=== PATIENT | female | born 1975 | race Caucasian/White ===

== ENCOUNTER 2019-08-02 16:54 | Emergency (ER) | payer BC, SELFPAY ==
[2019-08-02 16:55] VITALS: BP 155/90; PULSE 95; RESP 18; TEMP 36.1; O2SAT 97; BMI 28.3
[2019-08-02] MEDS: Lidocaine/Epi/Tetracaine 50 ML 1 APPLIC TOPICAL (18:07)
--- NOTE | 2019-08-02 19:00 | ED.VIS.GEN ---
History of Present Illness Chief Complaint: Laceration Informant: Patient Onset: Today Context: Sudden Onset Current Severity: Moderate Maximum Severity: Moderate Narrative: The patient presents to the emergency department with a 4 cm forehead laceration. Patient states she got a new dog. She states that they [place] boxer mix. The dog jumped and scratched her across the face. She suffered a laceration was bleeding. Her tetanus is up-to-date. She denies other injury. The patient is otherwise been in her normal state of health. Prior similar symptoms: No Recent Illness/Hospitalization: No Past Medical History - Allergies and Home Meds Allergies/Adverse Reactions: Allergies No Known Allergies Allergy (Verified 09/02/17 20:40) Primary Care Physician: Mady Palmer MD [Primary Care Provider] - 5-7 Days Prior records reviewed: Yes Past Medical History: None Surgical History: no surgical history Smoking Status: Current every day smoker Review of Systems General: Denies: Chills, Fever, Sweats Eyes: Denies: Visual changes - bilaterally, Diplopia ENT: Denies: Rhinorrhea, Sore throat Cardiovascular: Denies: Chest pain, Palpitations Respiratory: Denies: Dyspnea, Cough, Dyspnea on exertion Gastrointestinal: Denies: Abdominal pain, Nausea, Vomiting, Diarrhea, Melena, Hematochezia Genitourinary: Denies: Dysuria, Hematuria, Frequency Musculoskeletal: Denies: Back pain, Extremity Pain Skin: Denies: Rash, Wounds Neurological: Denies: Headache, Weakness, Numbness Physical Exam Vital Signs/Narrative: Vital Signs Temp Pulse Resp BP Pulse Ox 08/02/19 16:55 97 F L 95 18 155/90 H 97 Inital Vital Signs reviewed: Yes General: Well nourished, Well developed, No Acute Distress Head: Normocephalic, Trauma, - - 4 cm linear full-thickness laceration just at the hairline of the left forehead. No active bleeding. Eyes: Perrl, EOMI ENT: Moist mucous membranes, No rhinorrhea Neck: Supple, Nontender Cardiovascular: Regular rate, Regular rhythm, No murmurs Respiratory: No distress, CTA bilaterally, Chest nontender Abdomen: Soft, Nontender, Nondistended, Normal bowel sounds Back: Nontender, Normal Inspection Extremities: Nontender, No edema Skin: Normal color, No rash Neurological: Alert, Oriented x3, Cranial nerves II-XII grossly intact, Normal Strength, Normal Sensation Psychological: Normal affect, Normal Mood Diagnostic/Tx/Re-eval - Medical Decision Making Procedure note: Let was applied topically. 4 cc of lidocaine with epinephrine was injected. The wound was cleaned with Shur-Clens. It was irrigated copiously with 250 cc of normal saline. There was no gross contamination. The 4 cm laceration was repaired loosely with 3 space 6-0 simple interrupted suture. The patient tolerated this without issue. The patient presents with laceration from a dog scratch. It was not a bite. The wound was anesthetized and irrigated. I was hesitant for primary closure just given it was an animal wound, but was not a bite. With the proximity to the hairline, Steri-Strips were not work. I elected to close it loosely with only 3 simple interrupted suture. I am going to place the patient on antibiotics. I did appliance counselor her to keep close eye on the wound and that should be reevaluated within 48 hours. She is comfortable with this plan of care. Impression 1. 4 cm facial laceration with repair ED Disposition - Plan for ED Patient: Instructions: LACERATION, Face (Suture or Tape) Prescriptions: Amox/Clavulanate Tablet [Augmentin Tablet] 875 mg PO Q12H #20 tab Prescription Printed Referrals: Mady Palmer MD [Primary Care Provider] - 5-7 Days
[2019-08-02] MEDS: Amox/Clavulanate 875 MG Tablet PO (19:35)
== END 2019-08-02 19:38 | disposition home or self-care (01) ==
PROVIDERS: Emergency Provider Emergency Medicine; Family Provider Internal Medicine; PCP Internal Medicine
DX: S01.81XA Laceration without foreign body of other part of head, initial encounter (principal); X58.XXXA Exposure to other specified factors, initial encounter; Y93.9 Activity, unspecified; Y92.9 Unspecified place or not applicable; Y99.9 Unspecified external cause status; F17.200 Nicotine dependence, unspecified, uncomplicated
CPT/HCPCS: 12013; 99283

== ENCOUNTER → 2020-06-23 12:50 | Outpatient (CLI) | payer BC, SELFPAY ==
[2020-06-18 11:55] VITALS: BMI 28.3
--- NOTE | 2020-06-23 12:52 | RAD_ITS ---
STUDY: X-RAY CHEST REASON FOR EXAM: Female, 45 years old. POSITIVE TB TEST TECHNIQUE: PA and lateral views of the chest. COMPARISON: Comparison is made with prior study dated 01/02/2011. FINDINGS: Hyperinflation. The lungs are clear. Scattered calcified granulomas. There is no demonstrated pleural abnormality. Normal size heart. Normal mediastinum and scooter. Normal visualized pulmonary arteries. Normal visualized aortic arch and descending thoracic aorta. Normal visualized thoracic spine. Normal visualized ribs, clavicles, and shoulders. There is no demonstrated abnormality of the visualized soft tissue structures of the upper abdomen. RAD/Chest PA and Lateral IMPRESSION: Hyperinflation. Electronically Signed: Faustino Wong, at 14:07 EDT , Service support ,
== END ==
LOC: HPRAD 12:52
PROVIDERS: Referring Provider Physician Assistant Surgical; Visit Provider Physician Assistant Surgical
DX: R76.11 Nonspecific reaction to tuberculin skin test without active tuberculosis (principal)
CPT/HCPCS: 71046